=== PATIENT | female | born 1990 | race Caucasian/White ===

== ENCOUNTER 2020-03-08 16:26 | Outpatient (RCR) | payer OTHER, SELFPAY ==
--- NOTE | ~2020-03-08 | US_ITS ---
EXAMINATION: US OB BPP wo non-stress DATE: 03/08/2020 19:08 INDICATION: Gestational diabetes, nonreactive nonstress test, third trimester TECHNIQUE: Real-time pelvic ultrasound was performed. The interpreting radiologist was not present fo r the study. COMPARISON: None. FINDINGS: There is a single living fetus in vertex presentation. The placenta is fundal. heart rate is 14 2 beats per minute (bpm). Biophysical profile performed by the technologist: breathing (30 sec sustained breathing in 30 minutes): 2 out of 2 movement (3 gross body movements in 30 minutes): 2 out of 2 tone (one episode of xeqhddg-wygcqnfmk-xwiqooq limb movement): 2 out of 2 Amniotic fluid pocket (2 cm): 2 out of 2 Total score: 8 out of 8 IMPRESSION: 1. Single living fetus in vertex presentation. 2. Biophysical profile 8 out of 8. Reviewed, dictated and finalized at location A.
[2020-03-08 18:07] VITALS: BP 120/65; PULSE 92
--- NOTE | 2020-03-08 18:40 | PC.NURSE ---
Pt taken to US for BPP via wheelchair at this time.
--- NOTE | 2020-03-08 19:10 | PC.NURSE ---
Pt returned to room via wheelchair from US.
--- NOTE | 2020-03-08 19:11 | PC.NURSE ---
Call to pt in from office after non-reactive tracing. NST here reactive, G3,P2 who is 38+1. BPP 06/01 this evening. Appt with Brandi lopez and scheduled induction for GD ur 03/14. NNO's at this time, ok to send home per .
--- NOTE | 2020-03-08 19:15 | PC.NURSE ---
Pt sent home at this time. Educated pt and spouse on when to call provider and/or to return to hospital for any decrease in movement, vag bleeding or leaking, more than 6ctx in an hour. Instructed to keep appt and nst with Brandi in office on . Pt and spouse verbalize understanding of education. Pt going home and ambulated out independently at this time.
== END 2020-03-15 08:00 | disposition home or self-care (01) ==
LOC: ANHOBOP 16:26
PROVIDERS: Visit Provider Obstetrics & Gynecology Gynecology
DX: O24.419 Gestational diabetes mellitus in pregnancy, unspecified control (principal); Z3A.38 38 weeks gestation of pregnancy
CPT/HCPCS: 59025; 76819

== ENCOUNTER 2020-03-14 06:59 | Inpatient (IN) | payer OTHER, SELFPAY ==
[2020-03-14] VITALS (64 sets, daily range): BP systolic 88–137; BP diastolic 39–102; PULSE 70–124; RESP 15–18; TEMP 36.6–37.1; O2SAT 96–100; BMI 35.7
--- NOTE | 2020-03-14 07:41 | WPDOBADMIT ---
Obstetrics - Admit Note Admission Note: record reviewed. No pertinent additions to the history and/or any subsequent changes in the physical findings that are not consistent with the expected course of the were found. Additions to the history and/or subsequent changes in the physical findings follow. None.Here for MIL for GDMA2. Cervix 350/-2 posterior. AROM with clear fluid.
[2020-03-14 07:56] LABS: Glucose Point of Care 81 (65-105)
[2020-03-14 07:59] LABS: Basophils Percent Auto 0.3 % (0.2-1.2); Eosinophils Absolute Auto 0.2 K/mm3 (0-0.3); Eosinophils Percent Auto 1.6 % (0-4.4); Hematocrit 40.7 % (37.0-47.0); Hemoglobin 13.7 g/dL (12.0-15.0); Immature Granulocyte Absolute 0.08 K/mm3 (0.00-0.031); Immature Granulocyte Percent A 0.8 % (0-0.5); Lymphocytes Absolute Auto 1.33 K/mm3 (0.9-3.2); Lymphocytes Percent Auto 13.1 % (18.3-44.2); Mean Corpuscular HGB Conc 33.7 g/dl (32-36); Mean Corpuscular Hemoglobin 31.7 pg (26-34); Mean Corpuscular Volume 94.2 fl (80-100); Mean Platelet Volume 11.4 fl (7.4-10.4); Monocytes Absolute Auto 0.8 K/mm3 (0.1-0.6); Monocytes Percent Auto 7.9 % (2.6-8.5); Neutrophils Absolute Auto 7.8 K/mm3 (1.3-6.7); Neutrophils Percent Auto 76.3 % (45.5-73.1); Platelet Count Result 170 k/mm3 (150-375); Red Blood Count 4.32 M/mm3 (4.2-5.4); Red Cell Distribution Width 13.3 % (11.5-14.5); White Blood Count 10.2 K/mm3 (4.5-10.0)
[2020-03-14] MEDS: LACTATED RINGERS 1,000 ML 125 ML IV CONT ×3 (08:20→11:38)
[2020-03-14] MEDS: OXYTOCIN 30 UNITS/NS 500 ML 30 UNITS/500 ML BAG IV CONT (08:20)
--- NOTE | 2020-03-14 08:37 | LDADM ---
This patient, Bianca Ramirez, was admitted to Labor/Delivery/Recovery 102 on 03/14/20 at 06:59. Plans for labor, pain management and were discussed with patient. Patient/family oriented to hospital policies and general routines including ID bracelet, bed and alarms, visiting hours, pain management, procedures, bathroom and other care routines, personal items, smoking policy, room service/diet and guest tray routines, security routines, and visiting hours. Patient/Family are encouraged to report perceived risks to care and to ask questions if they do not understand what they are told or what they should do. See OBIX for further documentation.
--- NOTE | 2020-03-14 10:24 | WPDANESEPP ---
Anes - Eval Pre Procedure Procedure: labor epidural Date/Time: 03/14/20 10:24 Surgeon: erasmo Pre Op Diagnosis: Induction of Labor Patient Data Age: 29 Gender: F Height: 1.52 m Weight: 83 kg Last Vital Signs Temp 36.9 C 03/14/20 07:35 Pulse 90 03/14/20 10:00 BP 110/64 03/14/20 10:00 Allergies Allergy/AdvReac Type Severity Reaction Status Date / Time amoxicillin Allergy Hives Verified 02/24/20 13:28 Home Medications Medication Instructions Recorded Confirmed Type PNV cmb#95-ferrous fumarate-FA 1 tablet PO DAILY 02/24/20 03/08/20 History [] aspirin 81 mg PO DAILY 02/24/20 03/08/20 History cholecalciferol (vitamin D3) 125 mcg PO DAILY 02/24/20 03/08/20 History [Vitamin D3] insulin NPH isoph U-100 human 40 unit SUBCUT HS 02/24/20 03/08/20 History [Novolin N NPH U-100 Insulin] Laboratory Tests 03/14/20 03/14/20 03/14/20 07:42 07:45 07:45 WBC 10.2 K/mm3 H K/mm3 (4.5-10.0) RBC 4.32 M/mm3 M/mm3 (4.2-5.4) Hgb 13.7 g/dL g/dL (12.0-15.0) Hct 40.7 % % (37.0-47.0) MCV 94.2 fl fl (80-100) MCH 31.7 pg pg (26-34) MCHC 33.7 g/dl g/dl (32-36) RDW 13.3 % % (11.5-14.5) Plt Count 170 k/mm3 k/mm3 (150-375) MPV 11.4 fl H fl (7.4-10.4) Immature Gran % (Auto) 0.8 % H % (0-0.5) Neut % (Auto) 76.3 % H % (45.5-73.1) Lymph % (Auto) 13.1 % L % (18.3-44.2) [place] % (Auto) 7.9 % % (2.6-8.5) Eos % (Auto) 1.6 % % (0-4.4) Baso % (Auto) 0.3 % % (0.2-1.2) Lymph # (Auto) 1.33 K/mm3 K/mm3 (0.9-3.2) [place] # (Auto) 0.8 K/mm3 H K/mm3 (0.1-0.6) Eos # (Auto) 0.2 K/mm3 K/mm3 (0-0.3) Baso # (Auto) 0.0 K/mm3 K/mm3 (0.0-0.1) Abs Immat Gran (auto) 0.08 K/mm3 H K/mm3 (0.00-0.031) Absolute Neuts (auto) 7.8 K/mm3 H K/mm3 (1.3-6.7) Absolute Nucleated RBC 0.0 K/mm3 K/mm3 (0.0-0.012) Nucleated RBC % 0.0 % % (0.0-0.2) POC Capillary Glucose 81 mg/dl mg/dl (65-105) RPR Pending Blood Type Antibody Screen 03/14/20 07:45 WBC RBC Hgb Hct MCV MCH MCHC RDW Plt Count MPV Immature Gran % (Auto) Neut % (Auto) Lymph % (Auto) [place] % (Auto) Eos % (Auto) Baso % (Auto) Lymph # (Auto) [place] # (Auto) Eos # (Auto) Baso # (Auto) Abs Immat Gran (auto) Absolute Neuts (auto) Absolute Nucleated RBC Nucleated RBC % POC Capillary Glucose RPR Blood Type O Positive Antibody Screen Negative Patient hx anesthesia problems: none Family hx anesthesia problems: none PENDING SALE TO [facility] Family History Family History (Updated 02/24/20 @ 13:31 by Diaz Kohler RN) Mother Hypertension Father Hypertension Father Cancer Social History Social History Smoking status: Never smoker Substance use: never Gender identity (if verbalized by the patient): Female Spiritual care concerns: No Exam Day of Procedure 03/14/20 10:24
[2020-03-14] MEDS: PHENYLEPHRINE 1,000 MCG/10 ML SYRINGE 100 MCG IV PUSH (11:40)
[2020-03-14 11:55] LABS: Glucose Point of Care 46 (65-105)
--- NOTE | 2020-03-14 13:31 | PM.OBPRVD ---
OB - Delivery Note Procedure Delivery date: 03/14/20 Procedure: events: Gestational Diabetes (GDMA2), Labor Induction and Meconium Stained Fluid Induction method: AROM and per pitocin protocol Delivery monitor: external FHT and external uterine Route of delivery: Laceration description: None Specimen: Yes (placenta) Estimated blood loss (mL): 100 Anesthesia type: Epidural Disposition: PACU Complications: When RN put legs up into stirups, head delivered. I quickly put on gloves and delivered the infant into the bed. Baby Date of : 03/14/20 Weeks of gestation at delivery: 39 Infant gender: Female presentation: vertex Placenta delivery description: Spontaneous cord vessel description: 3 Vessels score one minute: 9 score five minutes: 9
--- NOTE | 2020-03-14 13:33 | PM.OBDSVD ---
DS: Discharge Diagnosis Discharge Diagnosis (1) 39 weeks gestation of : Code(s): Z3A.39 - 39 weeks gestation of Status: Acute (2) GDM, class A2: Code(s): O24.419 - Gestational diabetes mellitus in , unspecified control Status: Acute (3) (normal spontaneous vaginal delivery): Code(s): O80 - Encounter for full-term uncomplicated delivery Status: Acute OB - DS: Summary OB Procedures : NST and Ultrasound OB Procedures Intrapartum: Spontaneous Vag Delivery OB Procedures: : None Peripartum Data Infant Delivery Method: Natural Vaginal Laceration description: None complications: none Status at Discharge Functional status at discharge: independent ambulation Overall status at discharge: patient is progressing back to baseline Time Spent with Patient Time attestation: Total time spent providing and/or coordinating discharge services: DS: Data Data Completed and Pending Labs on day of discharge: Labs from last 24 hours 03/14/20 03/14/20 03/14/20 11:53 07:45 07:45 WBC RBC Hgb Hct MCV MCH MCHC RDW Plt Count MPV Immature Gran % (Auto) Neut % (Auto) Lymph % (Auto) [place] % (Auto) Eos % (Auto) Baso % (Auto) Lymph # (Auto) [place] # (Auto) Eos # (Auto) Baso # (Auto) Abs Immat Gran (auto) Absolute Neuts (auto) Absolute Nucleated RBC Nucleated RBC % POC Capillary Glucose 46 L* RPR Pending Blood Type O Positive Antibody Screen Negative 03/14/20 03/14/20 07:45 07:42 WBC 10.2 H RBC 4.32 Hgb 13.7 Hct 40.7 MCV 94.2 MCH 31.7 MCHC 33.7 RDW 13.3 Plt Count 170 MPV 11.4 H Immature Gran % (Auto) 0.8 H Neut % (Auto) 76.3 H Lymph % (Auto) 13.1 L [place] % (Auto) 7.9 Eos % (Auto) 1.6 Baso % (Auto) 0.3 Lymph # (Auto) 1.33 [place] # (Auto) 0.8 H Eos # (Auto) 0.2 Baso # (Auto) 0.0 Abs Immat Gran (auto) 0.08 H Absolute Neuts (auto) 7.8 H Absolute Nucleated RBC 0.0 Nucleated RBC % 0.0 POC Capillary Glucose 81 RPR Blood Type Antibody Screen Discharge Plan Discharge Attending physician on discharge: Vicky Paz Discharging Clinician: Vicky Paz Anticipated Discharge Date/Time: 03/15/20 09:24 Patient Disposition: Home, Self-Care Activity: pelvic rest Diet: regular Patient Instructions: Antibiotic Form Stand Alone Forms: General Discharge Information Follow-up/Referrals: Vicky Paz MD [Physician] - 6 Weeks Discharge Medications: Continued cholecalciferol (vitamin D3) [Vitamin D3] 125 mcg (5,000 unit) Tablet 125 mcg PO DAILY RF: 0 PNV cmb#95-ferrous fumarate-FA [] 28 mg iron- 800 mcg Tablet 1 tablet PO DAILY RF: 0 Discontinued Novolin N NPH U-100 Insulin 100 unit/mL Suspension 40 unit SUBCUT HS RF: 0 aspirin 81 mg Tablet,Chewable 81 mg PO DAILY RF: 0 Date of admission: 03/14/20 06:59 Primary Care Provider: PHYSICIAN,STUNT WOMAN Admitting Provider: Vicky Paz Attending physician on admission: Vicky Paz Condition: Stable
[2020-03-14] MEDS: OXYTOCIN 30 UNITS/NS 500 ML 30 UNITS/500 ML BAG 125 UNITS IV CONT (14:09)
--- NOTE | 2020-03-14 16:47 | OBPPTRN ---
Patient transferred to post room #285 via wheelchair with baby in bassinet. Support person present. Oriented to unit, room, information board, rooming in, admission packet and security measures. Patient verbalizes understanding.
[2020-03-15 04:56] LABS: Hematocrit 38.4 % (37.0-47.0); Hemoglobin 12.8 g/dL (12.0-15.0)
--- NOTE | 2020-03-15 07:29 | WPDANLDPN2 ---
Anes-Prog Note L&D Date/Time: 03/15/20 07:29 Comfortable throughout: labor and delivery Neuraxial method: epidural Epidural/Spinal procedure site: clean & non-tender Neuro status: Neuro function grossly intact. Cardiovascular status: normal Respiratory status: normal Airway patency: baseline Mental status: baseline Post-Op hydration status: normal Vital Signs: Last Vital Signs Temp 37.1 C 03/14/20 19:25 Pulse 100 03/14/20 19:25 Resp 15 03/14/20 19:25 BP 129/78 03/14/20 19:25 Pulse Ox 98 03/14/20 19:25 I/O: Intake & Output 03/14/20 03/14/20 03/15/20 15:59 23:59 07:59 Intake Total 2000 Output Total 100 Balance 1999 - Post-procedural complaints: none Patient feedback: Patient satisfied with anesthetic care.
[2020-03-15 07:53] LABS: Rapid Plasma Reagin Non-Reactive (NonReactive)
[2020-03-15 08:05] VITALS: BP 103/62; PULSE 91; RESP 16; TEMP 36.9; O2SAT 98
--- NOTE | 2020-03-15 09:23 | P.PNOB_ITS ---
OB - PN: Subj Subjective Date/time seen: 03/15/20 09:23 Patient comments: pain well controlled [place] baby status: nursing well OB - PN: Obj Data Labs CBC & Chem 7: 03/15/20 04:00 Labs: Laboratory Results - last 24 hr 03/14/20 03/14/20 03/15/20 07:45 11:53 04:00 Hgb 12.8 Hct 38.4 POC Capillary Glucose 46 L* RPR Non-reactive OB - PN A/P Plan day: 1 Plan: routine care, discharge home, follow up 6 weeks and other (plans condoms) Time Spent With Patient Time: Total time spent is greater than 50% in coordination of care (as documented) at patient's floor/unit and/or counseling patient: Exam : Bimanual exam- vagina & uterus: other (Uterus firm, nt @U)
[2020-03-15] MEDS: MULTIVIT/MIN/PREN/FOL AC/IRON TABLET 1 TAB PO (10:03)
[2020-03-15] MEDS: DOCUSATE SODIUM 100 MG CAPSULE PO (10:04)
[2020-03-15] MEDS: IBUPROFEN 600 MG TABLET PO (10:04)
--- NOTE | 2020-03-15 13:40 | PC.NURSE ---
Mother is able to independently latch infant with appropriate positioning/alignment. She denies any nipple discomfort, is feeding as required and waking to feed if needed. has had at least 8 effective feedings in the past 24 hours, and is currently meeting outcomes for weight, output, jaundice and feeding frequencies. Mother states she feels confident to continue effective at home. Reviewed transition to breast milk, signs of adequate intake, and engorgement/relief. Instructed to call ICP if intake/output less than required. Reviewed regular medications mother is taking. Information provided per [place]. Reviewed community resources on the [facility] website and in the Mom/Baby guide. Information on outpatient services provided. Mother has no further questions at this time.
[2020-03-18 12:48] VITALS: BP 117/61; PULSE 89; RESP 20
== END 2020-03-15 16:22 | disposition home or self-care (01) | DRG 807 ==
LOC: ANHLDR 13:35 → ANHOB2 17:06
PROVIDERS: Admitting Provider Obstetrics & Gynecology Gynecology; Visit Provider Obstetrics & Gynecology Gynecology
DX: O24.424 Gestational diabetes mellitus in childbirth, insulin controlled (principal); Z37.0 Single live birth; Z3A.39 39 weeks gestation of pregnancy; O77.0 Labor and delivery complicated by meconium in amniotic fluid; O76 Abnormality in fetal heart rate and rhythm complicating labor and delivery
CPT/HCPCS: 36415; 85014; 85018; 85025; 86592; 86850; 86900; 86901; 88307; A9270; J2370; J2590; J2795; J7120

== ENCOUNTER 2022-04-06 14:38 | Outpatient (RCR) | payer OTHER, SELFPAY ==
[2022-03-23 11:09] VITALS: BP 133/60; PULSE 107
[2022-04-06 15:17] VITALS: BP 122/58; PULSE 113
== END 2022-05-02 09:15 | disposition home or self-care (01) ==
LOC: ANHOBOP 14:38
PROVIDERS: Visit Provider Obstetrics & Gynecology Gynecology
DX: O24.419 Gestational diabetes mellitus in pregnancy, unspecified control (principal); Z3A.34 34 weeks gestation of pregnancy; Z3A.36 36 weeks gestation of pregnancy
CPT/HCPCS: 59025

== ENCOUNTER 2022-04-11 09:03 | Outpatient (CLI) | payer OTHER, SELFPAY ==
[2022-04-11 09:37] VITALS: BP 115/63; PULSE 93
[2022-04-11 09:46] VITALS: BP 128/69; PULSE 98
[2022-04-11 10:01] VITALS: BP 119/62; PULSE 97
[2022-04-11 10:16] VITALS: BP 115/70; PULSE 97
[2022-04-11 10:43] VITALS: BP 115/70; PULSE 105
--- NOTE | 2022-04-11 11:13 | PM.OBTRLD ---
OB - Triage/Final Diagnosis Visit Information Date of evaluation: 04/11/22 Reason for evaluation: other (Breech by last u/s now vertex) Comments/Additional reasons for admission: I have assessed the risk for this patient, Bianca Ramirez, and determined that she would benefit from observation care. Evaluation Baseline heart rate: 140 Variability: Average (6-10) monitor accelerations: Present Vital signs: Vital Signs - 24 hr 04/11/22 10:43 04/11/22 09:37 04/11/22 09:46 Pulse Rate 105 H 93 98 Blood Pressure 115/63 128/69 Blood Pressure [Right Arm] 115/70 04/11/22 10:01 04/11/22 10:16 Pulse Rate 97 97 Blood Pressure 119/62 115/70 Blood Pressure [Right Arm] Comments: bedside u/s done and infant now Vertex. DC home.
== END 2022-04-11 10:30 | disposition home or self-care (01) ==
LOC: ANHOBOP 09:08 → ANHOBPP 04-16 06:30
PROVIDERS: Visit Provider Obstetrics & Gynecology Gynecology
DX: O32.1XX0 Maternal care for breech presentation, not applicable or unspecified (principal); Z3A.00 Weeks of gestation of pregnancy not specified
CPT/HCPCS: 59025; 99199

== ENCOUNTER 2022-04-27 04:56 | Inpatient (IN) | payer OTHER, SELFPAY ==
[2022-04-27] VITALS (60 sets, daily range): BP systolic 56–140; BP diastolic 45–85; PULSE 77–130; RESP 18; TEMP 36.2–36.7; O2SAT 98–100; BMI 37.4
--- NOTE | 2022-04-27 05:14 | LDADM ---
This patient, Bianca Ramirez, was admitted to Labor/Delivery/Recovery 105 on 04/27/22 at 04:56. Plans for labor, pain management and were discussed with patient. Patient/family oriented to hospital policies and general routines including ID bracelet, bed and alarms, visiting hours, pain management, procedures, bathroom and other care routines, personal items, smoking policy, room service/diet and guest tray routines, infant security routines, and visiting hours. Patient/Family are encouraged to report perceived risks to care and to ask questions if they do not understand what they are told or what they should do. See OBIX for further documentation.
[2022-04-27 05:57] LABS: Glucose Point of Care 137 mg/dl (65-105)
[2022-04-27 06:12] LABS: Basophils Percent Auto 0.2 % (0.2-1.2); Eosinophils Absolute Auto 0.1 K/mm3 (0-0.3); Hematocrit 39.6 % (37.0-47.0); Hemoglobin 13.4 g/dL (12.0-15.0); Immature Granulocyte Absolute 0.06 K/mm3 (0.00-0.031); Immature Granulocyte Percent A 0.6 % (0-0.5); Lymphocytes Absolute Auto 1.32 K/mm3 (0.9-3.2); Lymphocytes Percent Auto 14.1 % (18.3-44.2); Mean Corpuscular HGB Conc 33.8 g/dl (32-36); Mean Corpuscular Hemoglobin 31.5 pg (26-34); Mean Corpuscular Volume 93.2 fl (80-100); Monocytes Absolute Auto 0.6 K/mm3 (0.1-0.6); Monocytes Percent Auto 6.5 % (2.6-8.5); Neutrophils Absolute Auto 7.3 K/mm3 (1.3-6.7); Neutrophils Percent Auto 77.6 % (45.5-73.1); Platelet Count Result 224 k/mm3 (150-375); Red Blood Count 4.25 M/mm3 (4.2-5.4); Red Cell Distribution Width 13.5 % (11.5-14.5); White Blood Count 9.4 K/mm3 (4.5-10.0)
[2022-04-27] MEDS: LACTATED RINGERS 1,000 ML 125 ML IV CONT ×2 (06:15→11:28)
[2022-04-27] MEDS: OXYTOCIN 30 UNITS/NS 500 ML 30 UNITS/500 ML BAG IV CONT (06:15)
[2022-04-27 09:43] LABS: Glucose Point of Care 80 mg/dl (65-105)
--- NOTE | 2022-04-27 10:19 | WPDOBADMIT ---
Obstetrics - Admit Note Admission Note: record reviewed. No pertinent additions to the history and/or any subsequent changes in the physical findings that are not consistent with the expected course of the were found. Additions to the history and/or subsequent changes in the physical findings follow. None.Here at 39 wks for MIL for GDMA2. Cervix 3-4/70/-2 AROM with clear fluid. FHTs reactive
--- NOTE | 2022-04-27 11:36 | WPDANESEPPF ---
Anes - Initial Pre Proc Eval Date/Time: 04/27/22 11:36 Surgeon: Vicky Paz MD Pre Op Diagnosis: IOL Patient Data Age: 31 Gender: F Height: 1.52 m Weight: 87 kg Last Vital Signs Temp 36.6 C 04/27/22 09:30 Pulse 113 H 04/27/22 11:34 BP 118/61 04/27/22 11:34 Pulse Ox 100 04/27/22 11:30 O2 Del Method Room Air 04/27/22 05:42 Allergies Allergy/AdvReac Type Severity Reaction Status Date / Time amoxicillin Allergy Hives Verified 04/27/22 05:41 Home Medications Medication Instructions Recorded Confirmed Type cholecalciferol (vitamin D3) 125 5,000 unit PO DAILY 02/24/20 04/27/22 History mcg (5,000 unit) tablet (Vitamin D3) vit no.95-ferrous 1 tablet PO DAILY 02/24/20 04/27/22 History fumarate 28 mg-folic acid 800 mcg tablet () aspirin 81 mg chewable tablet 81 mg PO DAILY 03/23/22 04/27/22 History insulin NPH isoph U-100 human 100 62 unit subcut HS 03/23/22 04/27/22 History unit/mL subcutaneous suspension (Novolin N NPH U-100 Insulin isophane) Laboratory Tests 04/27/22 04/27/22 04/27/22 05:30 05:51 05:51 WBC 9.4 K/mm3 K/mm3 (4.5-10.0) RBC 4.25 M/mm3 M/mm3 (4.2-5.4) Hgb 13.4 g/dL g/dL (12.0-15.0) Hct 39.6 % % (37.0-47.0) MCV 93.2 fl fl (80-100) MCH 31.5 pg pg (26-34) MCHC 33.8 g/dl g/dl (32-36) RDW 13.5 % % (11.5-14.5) Plt Count 224 k/mm3 k/mm3 (150-375) MPV 12.0 fl H fl (7.4-10.4) Immature Gran % (Auto) 0.6 % H % (0-0.5) Neut % (Auto) 77.6 % H % (45.5-73.1) Lymph % (Auto) 14.1 % L % (18.3-44.2) [place] % (Auto) 6.5 % % (2.6-8.5) Eos % (Auto) 1.0 % % (0-4.4) Baso % (Auto) 0.2 % % (0.2-1.2) Lymph # (Auto) 1.32 K/mm3 K/mm3 (0.9-3.2) [place] # (Auto) 0.6 K/mm3 K/mm3 (0.1-0.6) Eos # (Auto) 0.1 K/mm3 K/mm3 (0-0.3) Baso # (Auto) 0.0 K/mm3 K/mm3 (0.0-0.1) Abs Immat Gran (auto) 0.06 K/mm3 H K/mm3 (0.00-0.031) Absolute Neuts (auto) 7.3 K/mm3 H K/mm3 (1.3-6.7) Absolute Nucleated RBC 0.0 K/mm3 K/mm3 (0.0-0.012) Nucleated RBC % 0.0 % % (0.0-0.2) POC Capillary Glucose 137 mg/dl H mg/dl (65-105) RPR Pending Blood Type Antibody Screen 04/27/22 04/27/22 05:51 09:35 WBC RBC Hgb Hct MCV MCH MCHC RDW Plt Count MPV Immature Gran % (Auto) Neut % (Auto) Lymph % (Auto) [place] % (Auto) Eos % (Auto) Baso % (Auto) Lymph # (Auto) [place] # (Auto) Eos # (Auto) Baso # (Auto) Abs Immat Gran (auto) Absolute Neuts (auto) Absolute Nucleated RBC Nucleated RBC % POC Capillary Glucose 80 mg/dl mg/dl (65-105) RPR Blood Type O Positive Antibody Screen Negative Patient hx anesthesia problems: none Family hx anesthesia problems: none Results Review: All pre-operative results and documents have been reviewed as part of the pre-operative evaluation. [facility] Past Medical History Medical History GDM, class A2 Family History Family History Mother Hypertension Father Hypertension Father Cancer Social History Social History Smoking status: Never smoker Second hand tobacco smoke exposure: No Substance use: never Gender identity (if verbalized by the patient): Female Spiritual care concerns: No Anes - Eval Final PreProcedure Day of Procedure 04/27/22 11:36 Patient weight: obese Heart: reg
[2022-04-27 13:22] LABS: Glucose Point of Care 64 mg/dl (65-105)
--- NOTE | 2022-04-27 14:37 | PM.OBPRVD ---
OB - Delivery Note Procedure Delivery date: 04/27/22 Procedure: Events: Gestational Diabetes (GDMA2) and Other (COVID in ) Induction method: AROM and Per Pitocin Protocol Delivery monitor: External FHT and External Uterine Route of delivery: Laceration Description: None Specimen: No Quantitative Blood Loss (ml): 100 Anesthesia type: Epidural Disposition: Floor Baby Date of : 04/27/22 Weeks of gestation at delivery: 39 gender: Female presentation: vertex position: Right Occiput Anterior Placenta delivery description: Spontaneous Cord Vessel Description: 3 Vessels score one minute: 9 score five minutes: 9
--- NOTE | 2022-04-27 14:39 | PM.OBDSVD ---
DS: Admitting Diagnosis Discharge Date 04/28/22 Admitting Diagnosis MIL 39 wks; GDMA2 DS: Discharge Diagnosis Discharge Diagnosis (1) (normal spontaneous vaginal delivery): Code(s): O80 - Encounter for full-term uncomplicated delivery Status: Acute (2) 39 weeks gestation of : Code(s): Z3A.39 - 39 weeks gestation of Status: Acute (3) GDM, class A2: Code(s): O24.419 - Gestational diabetes mellitus in , unspecified control Status: Acute OB - DS: Summary OB Procedures : NST and Ultrasound OB Procedures Intrapartum: Spontaneous Vag Delivery OB Procedures: : None Peripartum Data Delivery Method: Natural Vaginal Laceration Description: None complications: none Status at Discharge Functional status at discharge: independent ambulation Overall status at discharge: patient is progressing back to baseline Time Spent with Patient Time attestation: Total time spent providing and/or coordinating discharge services: DS: Data Data Completed and Pending Labs on day of discharge: Labs from last 24 hours 04/27/22 04/27/22 04/27/22 13:18 09:35 05:51 WBC RBC Hgb Hct MCV MCH MCHC RDW Plt Count MPV Immature Gran % (Auto) Neut % (Auto) Lymph % (Auto) [place] % (Auto) Eos % (Auto) Baso % (Auto) Lymph # (Auto) [place] # (Auto) Eos # (Auto) Baso # (Auto) Abs Immat Gran (auto) Absolute Neuts (auto) Absolute Nucleated RBC Nucleated RBC % POC Capillary Glucose 64 L 80 RPR Blood Type O Positive Antibody Screen Negative 04/27/22 04/27/22 04/27/22 05:51 05:51 05:30 WBC 9.4 RBC 4.25 Hgb 13.4 Hct 39.6 MCV 93.2 MCH 31.5 MCHC 33.8 RDW 13.5 Plt Count 224 MPV 12.0 H Immature Gran % (Auto) 0.6 H Neut % (Auto) 77.6 H Lymph % (Auto) 14.1 L [place] % (Auto) 6.5 Eos % (Auto) 1.0 Baso % (Auto) 0.2 Lymph # (Auto) 1.32 [place] # (Auto) 0.6 Eos # (Auto) 0.1 Baso # (Auto) 0.0 Abs Immat Gran (auto) 0.06 H Absolute Neuts (auto) 7.3 H Absolute Nucleated RBC 0.0 Nucleated RBC % 0.0 POC Capillary Glucose 137 H RPR Pending Blood Type Antibody Screen Discharge Plan Discharge Attending physician on discharge: Vicky Paz Consulting providers: Leelee Pride ; Maco Giang ; Kamila Bojorquez Discharging Clinician: Leelee Pride Anticipated Discharge Date/Time: 04/28/22 14:40 Patient Disposition: Home, Self-Care Activity: may shower and pelvic rest Diet: regular Discharge Instructions: Education: Mom and Baby Guide Given to: Mother Follow-Up: Call your delivering provider's office for an appointment to be seen in: 6 Weeks Mom and baby should come to the [facility] for the follow-up appointment. Appointment Date/Time: April 29, 2022 at 11:00 am What to expect at your follow-up visit: Blood Pressure Check Physical Assessment Call [phone] if you are unable to keep your appointment time. BREAST CARE: * Wear a snug supportive bra. * For engorgement discomfort: Breast Feeding: * Apply warm moist washcloths * Express milk as needed to relieve engorgement * Wear loose clothing * For sore nipples: * Identify correct latch-on * Apply warm moist washcloths before and after nursing * Air dry nipples after nursing * May apply Lansinoh cream to nipples EPISIOTOMY/PERINEAL CARE: * Until bleeding stops, use your caprice bottle after urinating * Change your pad frequently throughout the day * You may take sitz baths several times a day (fill your bathtub with warm water and soak for 20 minutes.) Do NOT bathe in the water * No tub baths until seen by your physician - You may shower ACTIVITY: * Rest as much as possible. * Do not exercise or lift anyth
[2022-04-27] MEDS: OXYTOCIN 30 UNITS/NS 500 ML 30 UNITS/500 ML BAG 125 UNITS IV CONT (15:01)
[2022-04-28] VITALS: BP 119/59; PULSE 84; RESP 16; TEMP 36.5
[2022-04-28 04:00] VITALS: BP 130/72; PULSE 86; RESP 18; TEMP 36.8
[2022-04-28 04:59] LABS: Hematocrit 36.1 % (37.0-47.0); Hemoglobin 11.8 g/dL (12.0-15.0)
[2022-04-28 07:09] LABS: Rapid Plasma Reagin Non-Reactive (NonReactive)
--- NOTE | 2022-04-28 07:35 | P.PNOB_ITS ---
OB - PN: Subj Subjective Date/time seen: 04/28/22 08:34 Patient comments: no complaints and pain well controlled baby status: doing well and nursing well [place] feeding status: exclusively breast feeding OB - PN: Obj Data Labs CBC & Chem 7: 04/28/22 03:09 Labs: Laboratory Results - last 24 hr 04/27/22 04/27/22 04/27/22 05:51 09:35 13:18 Hgb Hct POC Capillary Glucose 80 64 L RPR Non-reactive 04/28/22 03:09 Hgb 11.8 L Hct 36.1 L POC Capillary Glucose RPR OB - PN A/P Plan day: 1 Plan: discharge home Time Spent With Patient Time: Total time spent is greater than 50% in coordination of care (as documented) at patient's floor/unit and/or counseling patient: Review of Systems Review of Systems: All systems reviewed & are unremarkable except as noted in HPI and below Exam Narrative: Alert and oriented. Mood is pleasant and cooperative. Urinating without difficulty. Denies passing any large clots. Perineum with minimal edema. Const: General: no acute distress Orientation/consciousness: patient oriented x3 Limitations: no limitations Resp: Effort & Inspection: normal respiratory effort Cardio: Rate: regular rate GI: Inspection: normal to inspection Neuro: General: patient oriented x3 Extrem: General: normal to inspection Psych: Appearance: grossly normal Affect: normal affect Thought process: Normal thought process present
[2022-04-28 07:45] VITALS: BP 118/71; PULSE 88; RESP 16; TEMP 36.8; O2SAT 98
--- NOTE | 2022-04-28 08:46 | WPDANLDPN2 ---
Anes-Prog Note L&D Date/Time: 04/28/22 08:46 Comfortable throughout: labor and delivery Neuraxial method: epidural Epidural/Spinal procedure site: clean & non-tender Neuro status: Neuro function grossly intact. Cardiovascular status: normal Respiratory status: normal Airway patency: baseline Mental status: baseline Post-Op hydration status: normal Vital Signs: Last Vital Signs Temp 36.8 C 04/28/22 07:45 Pulse 88 04/28/22 07:45 Resp 16 04/28/22 07:45 BP 118/71 04/28/22 07:45 Pulse Ox 98 04/28/22 07:45 O2 Del Method Room Air 04/28/22 04:00 Pain score (VAS): 11/03 I/O: Intake & Output 04/27/22 04/28/22 04/28/22 23:59 07:59 15:59 Intake Total 500 Output Total 62 Balance 438 Post-procedural complaints: none Patient feedback: Patient satisfied with anesthetic care.
[2022-04-28] MEDS: ACETAMINOPHEN 325 MG TABLET 650 MG PO (08:53)
[2022-04-28] MEDS: DOCUSATE SODIUM 100 MG CAPSULE PO (08:54)
[2022-04-28] MEDS: MULTIVIT/MIN/PREN/FOL AC/IRON TABLET 1 TAB PO (08:54)
[2022-04-28 11:20] VITALS: BP 117/57; PULSE 102; RESP 18; TEMP 36.7; O2SAT 98
[2022-04-28 13:00] VITALS: PULSE 102; RESP 18; O2SAT 98
[2022-04-29 11:32] VITALS: BP 122/70; PULSE 99; RESP 20; TEMP 37.2; O2SAT 100
== END 2022-04-28 16:30 | disposition home or self-care (01) | DRG 807 ==
LOC: ANHLDR 14:40 → ANHOB2 17:13
PROVIDERS: Admitting Provider Obstetrics & Gynecology Gynecology; Visit Provider Obstetrics & Gynecology Gynecology
DX: O24.420 Gestational diabetes mellitus in childbirth, diet controlled (principal); Z37.0 Single live birth; O69.81X0 Labor and delivery complicated by cord around neck, without compression, not applicable or unspecified; Z3A.39 39 weeks gestation of pregnancy; Z86.16 Personal history of COVID-19
CPT/HCPCS: 36415; 82948; 85014; 85018; 85025; 86592; 86850; 86900; 86901; A9270; J2590; J2795; J7120